=== PATIENT | female | born 1960 | race Caucasian/White ===

== ENCOUNTER 2022-05-31 05:58 | Day surgery (SDC) | payer OTHER ==
[2022-05-29 14:03] VITALS: BMI 28.3
[2022-05-31] MEDS ORDERED: PROPOFOL 60 ML ONE (07:13)
[2022-05-31] MEDS ORDERED: Fentanyl 100 MCG/2 ML VIAL ONE (07:14)
[2022-05-31] MEDS ORDERED: Ondansetron PF 4 MG/2 ML Vial ONE (07:14)
[2022-05-31] MEDS ORDERED: ePHEDrine Sulfate 50 MG/10 ML VIAL ONE (07:54)
== END 2022-05-31 08:55 | disposition home or self-care (01) ==
LOC: CSHSDC 05:58
PROVIDERS: ATTEND Internal Medicine Gastroenterology
PROC: 0DBP8ZZ Excision of Rectum, Via Natural or Artificial Opening Endoscopic (ICD-10-PCS; principal; 2022-05-31)
PROC: 0DB68ZX Excision of Stomach, Via Natural or Artificial Opening Endoscopic, Diagnostic (ICD-10-PCS; principal; 2022-05-31)
DX: Z12.11 Encounter for screening for malignant neoplasm of colon (principal); K63.5 Polyp of colon; K62.1 Rectal polyp; K21.00 Gastro-esophageal reflux disease with esophagitis, without bleeding; K57.30 Diverticulosis of large intestine without perforation or abscess without bleeding; K31.89 Other diseases of stomach and duodenum; K31.7 Polyp of stomach and duodenum; K64.9 Unspecified hemorrhoids; R13.10 Dysphagia, unspecified; Z86.010 Personal history of colon polyps; Z87.891 Personal history of nicotine dependence; Z90.710 Acquired absence of both cervix and uterus
CPT/HCPCS: 88305; J2405; J2704; J3010